=== PATIENT | male | born 1975 | race Hispanic/Latino ===

== ENCOUNTER 2017-01-06 08:40 | Emergency (ER) | payer MEDICARE ==
[2017-01-06] MEDS ORDERED: DiphenhydrAMINE 50 mg/ml Inj IVP STA (09:29)
[2017-01-06] MEDS ORDERED: Sodium Chloride 0.9% 1,000 ML IV ONE (09:29)
--- NOTE | 2017-01-06 09:30 | C.PDOC ---
History Of Present Illness 41 yo male w/o significant PMHx come in for evaluation of intermittent red itchy rash associated with mild swelling gradually developed for past week. Pt sts, yesterday had episode of SOB, mild retrosternal chest pain that last few minutes, resolved with time. Pt sts, started to supplement himself with Iron week ago " that seemed initiated that rash". Otherwise, pt denies fever, chills , headache, visual changes, throat pain or swelling, drooling, dyspnagia, dyspnea, wheezing, palpitation, diaphoresis, abd. pain, N/V, denies recent illness or sick contact. Ambulate to Ed for evaluation, not in any apparent distress. Time Seen by Provider: 01/06/17 09:14 Chief Complaint (Nursing): Dizziness/Lightheaded History Per: Patient History/Exam Limitations: no limitations Onset/Duration Of Symptoms: Mins Current Symptoms Are (Timing): Gone Fall Associated With With Symptoms: No Severity: Mild Past Medical History Reviewed: Historical Data, Nursing Documentation, Vital Signs Vital Signs: Last Vital Signs Temp 99 F 01/06/17 13:58 Pulse 107 H 01/06/17 13:58 Resp 18 01/06/17 13:58 BP 121/74 01/06/17 13:58 Pulse Ox 95 01/06/17 13:58 Family History: States: Unknown Family Hx - Social History Hx Alcohol Use: Yes Hx Substance Use: No - Immunization History Hx Tetanus Toxoid Vaccination: No Hx Influenza Vaccination: No Hx Pneumococcal Vaccination: No Review Of Systems Except As Marked, All Systems Reviewed And Found Negative. Constitutional: Negative for: Fever, Chills, Sweats Eyes: Negative for: Vision Change ENT: Negative for: Throat Pain, Throat Swelling Cardiovascular: Positive for: Chest Pain (resolved). Negative for: Palpitations Gastrointestinal: Negative for: Nausea, Vomiting, Abdominal Pain Skin: Positive for: Rash (intermittent, red, itchy rash with mild swelling) Neurological: Negative for: Headache Physical Exam - Physical Exam Appears: Well, Non-toxic, No Acute Distress Skin: Warm, Dry, Rash (scattered urticaria to B/L LEs, B/L UEs, trunk with mild edema. ) Eye(s): bilateral: PERRL Nose: No Flaring, No Discharge Oral Mucosa: Moist, No Drooling Tongue: Normal Appearing, No Swelling Lips: Normal Appearing, No Swelling Throat: No Drooling, Other (uvula midline, no edema.) Neck: Supple Cardiovascular: Rhythm Regular Respiratory: No Decreased Breath Sounds, No Accessory Muscle Use, No Rales, No Rhonchi, No Stridor, No Wheezing, No Plerual Rub Gastrointestinal/Abdominal: Soft, No Tenderness, No Distention, No Guarding Back: No CVA Tenderness Extremity: No Pedal Edema, No Swelling Neurological/Psych: Oriented x3, Normal Speech ED Course And Treatment - Laboratory Results Result Diagrams: 01/06/17 10:09 01/06/17 10:09 Lab Interpretation: Normal O2 Sat by Pulse Oximetry: 98 (room air) Pulse Ox Interpretation: Normal - CT Scan/US CTA chest Other Rad Studies (CT/US): Radiology Report Reviewed CT/US Interpretation: ccession No. : [id number]. Patient Name / ID : JOÃO DOZIER / [id number]. Exam Date : 01/06/2017 12:24:07 ( Approved ). Study Comment : Sex / Age : M / 41Y. Creator : Eve Lantigua MD. Dictator : Call Center Coordinator : Humane Agent : Eve Lantigua MD. Approver2 : Report Date : 01/06/2017 13:31:41. My Comment : . This report is currently processing and HAS NOT BEEN OFFICIALLY SIGNED BY THE PHYSICIAN - ESTIMATED TIME OF APPROVAL IS 01/06/2017 13:36. CTA chest PE protocol. Indication: SOB, CP. Technique: Contiguous axial images were obtained through the chest with intravenous contrast enhancement. Sagittal and coronal reconstructions were generated and reviewed. This CT exam was performed using 1 or more of the falling dose reduction techniques: Automated exposure control, adjustment of the MAA and/or kV according to patient size, and/or use of iterative reconstruction technique. IV Contrast: 100 cc Visipaque 320. . Radiation dose (DLP): 468.07 MGy-cm. Comparison: None available. Findings: Visualized portions of the inferior thyroid gland appear unremarkable. The mediastinal and hilar vascular structures appear within normal limits. The heart appears within normal limits of size. There is suboptimal opacification of the pulmonary arteries due to missed bolus of the intravenous contrast precluding adequate evaluation for pulmonary embolus. Minimal subsegmental dependent atelectasis. No focal consolidation. No pleural effusion. No pneumothorax. No suspicious pulmonary nodules measuring greater than 5 mm. Limited visualized portions of the upper abdomen appear grossly unremarkable. Bilateral gynecomastia. No acute osseous abnormality is detected. Impression: There is suboptimal opacification of the pulmonary arteries due to missed bolus of the intravenous contrast precluding adequate evaluation for pulmonary embolus. Minimal subsegmental dependent atelectasis. Bilateral gynecomastia. Case discussed with Kezia Nunez on 01/06/17 at 1:27 p.m. Medical Decision Making Medical Decision Making: On re-evaluation, pt is afebrile, hemodynamicaly stable. Pt reports moderate improvement in rash and swelling. PulseOx 98% RA ENT: no acute findings. uvula midline. neck: Supple, (-) carotid bruit, (-) JVD Lungs: CTA B/L, BS equal B/L Abd: benign. Neurologicaly intact. SKin: moderate improvement in urticaria. Blood work review , DDimer appeared high and CTA was order. As per conversation with radiologist, "suboptimal CTA PE protocol was performed due to individual variation". As per radiologist, was unable to completely r/o PE, "Although, overall CT chest appeared normal". Case discussed with ED attending and discharge recommend with outpt f/ u now. Results of blood work and imaging review and discussed with patient. Pt denies CP, SOB, dyspnea or palpitation. Pt advised and ref. to fu with PMd, millstone cleaner in 1-2 days for re-eavl. Return to Ed at any time if any worsening or new changes. Pt understand and agrees with discharges. Disposition Counseled Patient/Family Regarding: Studies Performed, Diagnosis, Need For Followup, Rx Given - Disposition Referrals: [facility] [Outside] Disposition: HOME/ ROUTINE Disposition Time: 13:32 Condition: STABLE Additional Instructions: TAKE MEDICATION PRESCRIBED ENCOURAGE FLUIDS AVOID IRON SUPPLEMENT DUE TO POSSIBLE ALLERGIC REACTION FOLLOW UP WITH PMD IN 1-2 DAYS FOR RE-EVALUATION. EVALUATION FOR POSSIBLE NEW ONSET OF DIABETES Prescriptions: DiphenhydrAMINE [Benadryl] 25 mg PO BID #10 cap Famotidine [Pepcid] 20 mg PO BID #10 tab Prednisone [Deltasone] 40 mg PO DAILY #6 tablet Instructions: Urticaria (ED) Forms: Press Play (Yakut) - Clinical Impression Clinical Impression: Urticaria
[2017-01-06] MEDS ORDERED: Sodium Chloride 0.9% 1,000 ML ONE (09:37)
[2017-01-06] MEDS ORDERED: DiphenhydrAMINE 50 mg/ml Inj ONE (09:37)
[2017-01-06 10:21] LABS: BASO % 0.1 % (0.0-2.0); HEMOGLOBIN 14.4 g/dL (12.0-18.0); LYMPH # 0.9 K/uL (1.0-4.3); LYMPH % 13.2 % (20.0-40.0); MEAN CELL VOLUME 85.5 fL (80.0-94.0); MEAN CORPUSCULAR HEMOGLOBIN 29.4 pg (27.0-31.0); MEAN CORPUSCULAR HGB CONC 34.4 g/dL (33.0-37.0); MEAN PLATELET VOLUME 9.4 fL (7.2-11.7); MONO # 0.3 K/uL (0.0-0.8); MONO % 3.7 % (0.0-10.0); NEUT # 5.8 K/uL (1.8-7.0); NRBC % 0.1 % (0.0-2.0); RBC 4.89 Mil/uL (4.40-5.90); RED CELL DISTRIBUTION WIDTH 12.9 % (11.5-14.5)
[2017-01-06 10:31] LABS: BLOOD UREA NITROGEN 16 mg/dL (9-20); CALCIUM 8.2 mg/dl (8.6-10.4); GFR AFRICAN-AMERICAN > 60; GFR NON-AFRICAN AMERICAN > 60
[2017-01-06 10:32] LABS: SQUAMOUS EPITHIAL < 1 /hpf (0-5); URINE BILIRUBIN NEGATIVE (NEGATIVE); URINE BLOOD NEGATIVE (NEGATIVE); URINE CLARITY Hazy (Clear); URINE COLOR Amber (YELLOW); URINE GLUCOSE (UA) 1+ mg/dL (Normal); URINE LEUKOCYTE ESTERASE NEG Leu/uL (Negative); URINE NITRATE NEGATIVE (NEGATIVE); URINE PROTEIN 2+ mg/dL (NEGATIVE)
[2017-01-06] MEDS ORDERED: Iodixanol 320 MG/ML 100 ML BOTTLE IV ONE (12:21)
--- NOTE | 2017-01-06 13:34 | CT ---
CTA chest PE protocol Indication: SOB, CP Technique: Contiguous axial images were obtained through the chest with intravenous contrast enhancement. Sagittal and coronal reconstructions were generated and reviewed. This CT exam was performed using 1 or more of the falling dose reduction techniques: Automated exposure control, adjustment of the MAA and/or kV according to patient size, and/or use of iterative reconstruction technique. IV Contrast: 100 cc Visipaque 320 Radiation dose (DLP): 468.07 MGy-cm. Comparison: None available Findings: Visualized portions of the inferior thyroid gland appear unremarkable. The mediastinal and hilar vascular structures appear within normal limits. The heart appears within normal limits of size. There is suboptimal opacification of the pulmonary arteries due to missed bolus of the intravenous contrast precluding adequate evaluation for pulmonary embolus. Minimal subsegmental dependent atelectasis. No focal consolidation. No pleural effusion. No pneumothorax. No suspicious pulmonary nodules measuring greater than 5 mm. Limited visualized portions of the upper abdomen appear grossly unremarkable. Bilateral gynecomastia. No acute osseous abnormality is detected. Impression: There is suboptimal opacification of the pulmonary arteries due to missed bolus of the intravenous contrast precluding adequate evaluation for pulmonary embolus. Minimal subsegmental dependent atelectasis. Bilateral gynecomastia. Case discussed with Kezia Nunez on 01/06/17 at 1:27 p.m.
[2017-01-06 13:59] VITALS: BP 121/74; PULSE 107; RESP 18; TEMP 99
[2017-01-07 17:06] VITALS: O2SAT 98
--- NOTE | 2017-01-07 18:47 | CARD ---
APPROVED REPORT EKG Measurement Heart [id number] <Conclusion> Sinus tachycardia Otherwise normal ECG
== END 2017-01-06 14:04 | disposition home or self-care (01) ==
LOC: C.ER 08:40
DX: L50.9 Urticaria, unspecified (principal)
CPT/HCPCS: 71275; 80048; 81001; 84484; 85025; 85378; 93005; 96361; 96374; 96375; 99285; J1200; J2930; J7040; Q9967